=== PATIENT | female | born 1955 | race African-American/Black ===

== ENCOUNTER 2017-12-01 11:49 | Emergency (ER) | payer SELFPAY ==
[~2017-12-01] VITALS: Ht 152.4 cm; Wt 61.0 kg
[2017-12-01] MEDS ORDERED: ACETAMINOPHEN 325MG TABLET PO ONE (14:30)
[2017-12-01 14:48] VITALS: BP 135/73
== END 2017-12-01 14:54 | disposition home or self-care (01) ==
LOC: ER 12:43
DX: T78.40XA Allergy, unspecified, initial encounter (principal); R51 Headache; E11.9 Type 2 diabetes mellitus without complications; I10 Essential (primary) hypertension; W57.XXXA Bitten or stung by nonvenomous insect and other nonvenomous arthropods, initial encounter; Y93.89 Activity, other specified; Y92.89 Other specified places as the place of occurrence of the external cause; Y99.8 Other external cause status
CPT/HCPCS: 99283